=== PATIENT | female | born 2000 | race Caucasian/White ===

== ENCOUNTER 2018-04-29 16:05 | Inpatient (IN) | payer OTHER ==
[2018-04-29] MEDS: DEXTROSE 5%-LACTATED RINGERS 1,000 ML IV SCH (18:10)
[2018-04-29 18:34] VITALS: BMI 24.4
[2018-04-29 19:08] LABS: BASO % 0.2 % (0-2.0); EOS % 0.1 % (0-4.5); HEMATOCRIT 39.5 % (32.4-45.2); HEMOGLOBIN 12.9 GM/dL (10.7-15.3); LYMPH % 12.6 % (8-40); MCH 26.4 pg (25.7-33.7); MCHC 32.7 g/dl (32.0-36.0); MEAN CELL VOLUME 80.6 fl (80-96); MONO % 9.4 % (3.8-10.2); NEUT % 77.7 % (42.8-82.8); PLATELET COUNT 128 K/MM3 (134-434); RBC 4.91 M/mm3 (3.60-5.2); RDW 27.7 % (11.6-15.6); WHITE BLOOD COUNT 8.1 K/mm3 (4.0-10.0)
[2018-04-29 19:37] LABS: INR 0.96 (0.82-1.09); PROTHROMBIN TIME (PATIENT) 10.8 SEC (9.7-13.0)
[2018-04-29 19:40] LABS: ACTIVATED PTT 27.4 SECONDS (25.2-36.5)
[2018-04-29 19:45] LABS: ANION GAP 11 (8-16); BLOOD UREA NITROGEN 7 mg/dL (7-18); CALCIUM 8.9 mg/dL (8.5-10.1); CHLORIDE 102 mmol/L (98-107); CO2 23 mmol/L (21-32); CREATININE 0.5 mg/dL (0.55-1.02); GLUCOSE,RANDOM 73 mg/dL (74-106); POTASSIUM 3.8 mmol/L (3.5-5.1); SODIUM 136 mmol/L (136-145)
--- NOTE | 2018-04-29 20:43 | HP ---
Past Medical History - Admission Chief Complaint: srom History of Present Illness: 17yo EDC 04/22/18 [facility] at 41 weeks presents with lof at 3:50pm. PNC at [facility] care significant for late registrant. 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: Alzheimer's, CVA, Dementia, Migraine, Multiple Sclerosis, Peripheral Neuropathy, Parkinson's, Seizure, Syncope, TIA, Vertigo, Other Cardiovascular: No: AFIB, Aneurysm, Aortic Insufficiency, Aortic Stenosis, CAD, CHF, Deep Vein Thrombosis, HTN, Hyperlipdemia, FL, Mitral Insufficiency, Mitral Stenosis, Murmur, Pulmonary Hypertension, Other Pulmonary: No: Asthma, Bronchitis, Cancer, COPD, O2 Dependent, Pneumonia, Previously Intubated, Pulmonary Embolus, Pulmonary Fibrosis, Sleep Apnea, Other Gastrointestinal: No: Ascites, Cancer, Constipation, Crohn's Disease, Diverticulitis, Diverticulosis, Esophageal Varices, Gastritis, GERD, GI Bleed, Hemorrhoids, Hiatal Hernia, Inflamatory Bowel Disease, Irritable Bowel Disease, Pancreatitis, Peptic Ulcer Disease, Ulcerative Colitis, Other Hepatobiliary: No: Cirrhosis, Cholelithiasis, Cholecystitis, Choledocholithiasis , Hepatitis A, Hepatitis B, Hepatitis C, Other Renal/: No: Renal Failure, Renal Inusuff, BPH, Cancer, Hematuria, Hemodialysis , Neurogenic Bladder, Renal Calculi, UTI, Other ...: 1 ...Para: 0 ...Term: 0 ...: 0 ...Spon : 0 ...Induced : 0 ...Multiple Gestation: 0 ...EDC by Sono: 04/22/18 - Past Surgical History Past Surgical History: Yes: None Hx Myomectomy: No Hx Transabdominal Cerclage: No - Smoking History Smoking history: Never smoked Have you smoked in the past 12 months: No - Alcohol/Substance Use Hx Alcohol Use: No History of Substance Use: reports: None Home Medications - Allergies Allergies/Adverse Reactions: Allergies Allergy/AdvReac Type Severity Reaction Status Date / Time No Known Allergies Allergy Verified 07/02/18 17:08 - Home Medications Home Medications: Ambulatory Orders Ferrous Sulfate [Feosol] 325 mg PO TID 04/29/18 Pnv No.95/Ferrous Fum/Folic AC [ Vitamin Tablet] 1 each PO DAILY Review of Systems - Review of Systems Constitutional: reports: No Symptoms Eyes: reports: No Symptoms HENT: reports: No Symptoms Neck: reports: No Symptoms Cardiovascular: reports: No Symptoms Respiratory: reports: No Symptoms Gastrointestinal: reports: No Symptoms Genitourinary: reports: Pain Breasts: reports: No Symptoms Reported Musculoskeletal: reports: No Symptoms Integumentary: reports: No Symptoms Neurological: reports: No Symptoms Endocrine: reports: No Symptoms Hematology/Lymphatic: reports: No Symptoms Psychiatric: reports: No Symptoms Physical Exam - Maternity Vital Signs: Vital Signs Temperature 98.8 F 04/29/18 20:00 Pulse Rate 78 04/29/18 20:00 Respiratory Rate 20 04/29/18 20:00 Blood Pressure 117/66 04/29/18 20:00 O2 Sat by Pulse Oximetry (%) Constitutional: Yes: Well Nourished, No Distress, Calm Eyes: Yes: WNL, Conjunctiva Clear, EOM Intact HENT: Yes: WNL, Atraumatic, Normocephalic Neck: Yes: WNL, Supple, Trachea Midline Cardiovascular: Yes: WNL, Regular Rate and Rhythm Breast(s): Yes: WNL - Abdominal Exam/OB Fundal Height: 40 Number of Fetuses: Single Presentation: Vertex Contractions: Yes Regularity: Regular Intensity: Mild/Mod Monitor Mode: External Heart Rate (range): 120 mod lillie +accel no decel Category: I Accelerations: Uniform Decelerations: None - Vaginal Exam/OB Vaginal Bleediing: No Speculum Exam: No Dilatation (cm): 2 Effacement (%): 60 Amniotic Membrane Status: Ruptured Amniotic Fluid: Yes: Clear Presentation: Vertex/Position Station: -2 - Physical Exam Musculoskeletal: Yes: WNL Extremities: Yes: WNL Integumentary: Yes: WNL - Labs Lab Results: CBC, BMP 04/29/18 18:36 04/29/18 18:36 Hemorrhage Risk Assessment - Risk Factors Medium Risk Factors: Yes: None High Risk Factors: Yes: None Risk Score: 1 Risk Level: Medium Risk Problem List - Problems (1) Labor and delivery indication for care or intervention Assessment/Plan: 17yo at 41 weeks in early labor admit to labor and deliver pain management as needed gbs negative, but ; will treat based on risk factors cat [address] Benavides Code(s): O75.9 - COMPLICATION OF LABOR AND DELIVERY, UNSPECIFIED
--- NOTE | 2018-04-29 20:43 | DS ---
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
[2018-04-29 22:05] LABS: COCAINE, UR NEGATIVE ng/ml (CUTOFF=300); METHADONE, UR NEGATIVE ng/ml (CUTOFF=300); OPIATES, URI NEGATIVE ng/ml (CUTOFF=300); PHENCYCLIDINE,URINE NEGATIVE ng/ml (CUTOFF=25); URINE AMPHETAMINES NEGATIVE ng/ml (CUTOFF=500); URINE BARBITURATES NEGATIVE ng/ml (CUTOFF=200); URINE BENZODIAZEPINES NEGATIVE ng/ml (CUTOFF=200)
[2018-04-29] MEDS ORDERED: DEXTROSE 5%-LACTATED RINGERS 1,000 ML IV SCH (23:30)
[2018-04-30] MEDS ORDERED: BUTORPHANOL TARTRATE 1 MG/ML VIAL ONE ×4 (00:37→09:19)
[2018-04-30] MEDS ORDERED: PROMETHAZINE HCL 25 MG/1 ML VIAL ONE ×2 (00:37→09:19)
[2018-04-30] MEDS: BUTORPHANOL TARTRATE 1 MG/ML VIAL IVPB PRN ×2 (00:45→09:30)
[2018-04-30] MEDS: PROMETHAZINE HCL 25 MG/1 ML VIAL IVPUSH PRN ×2 (00:45→09:30)
--- NOTE | 2018-04-30 08:18 | PN ---
Progress Note (short form) - Note Progress Note: 17 yo , admitted for SROM, seen and evaluated. She c/o mild discomfort. FHR : Occasional decelerations [place] : irregular contractions VE : 4 80 / -1 Internal monitor placed A / P : 41 weeks gestation SROM Continue observation
[2018-04-30] MEDS ORDERED: AMPICILLIN - 2 GM in SODIUM CHLORIDE 100 ML IVPB ONE (10:00)
[2018-04-30] MEDS ORDERED: AMPICILLIN SODIUM 2 GM VIAL ONE (10:03)
[2018-04-30] MEDS ORDERED: ELECTROLYTE-148 SOLN 1,000 ML IV SCH ×2 (13:30→15:30)
--- NOTE | 2018-04-30 13:44 | PN ---
Progress Note (short form) - Note Progress Note: 17 yo , admitted for SROM, seen and evaluated. She c/o severe discomfort but declines epidural anesthesia. FHR : Frequent decelerations [place] : irregular contractions VE : 4 / 80 / -1 Internal monitor placed A / P : 41 weeks gestation SROM Non Reassuring Heart rate Pre op for primary Consent signed Anesthesia to see patient
[2018-04-30] MEDS ORDERED: AMPICILLIN - 1 GM in SODIUM CHLORIDE 100 ML IVPB SCH (14:00)
[2018-04-30] MEDS ORDERED: OXYTOCIN 20 UNITS in 0.9% NS 20 UNIT/1,000 ML INFUS.BAG IV ONE (14:04)
[2018-04-30] MEDS ORDERED: BUPIVACAINE 0.75% IN DEXTROSE/PF 2ML AMPULE NR ONE (14:10)
[2018-04-30] MEDS ORDERED: morphine SULFATE/Preservative Free 0.5 MG/ML (1cc Syringe) ONE (14:10)
[2018-04-30] MEDS ORDERED: SUCCINYLCHOLINE CHLORIDE 200 MG/10 ML VIAL ONE (14:12)
[2018-04-30] MEDS ORDERED: PROPOFOL 20 ML ONE (14:12)
[2018-04-30] MEDS ORDERED: PHENYLEPHRINE HCL 10 MG/1 ML SINGLE DOSE VIAL ONE (14:16)
[2018-04-30] MEDS ORDERED: ceFAZolin SODIUM 1 GM VIAL ONE (14:16)
[2018-04-30] MEDS ORDERED: LIDOCAINE HCL 1% PRESERVATIVE FREE - 30ML VIAL ONE (14:41)
[2018-04-30] MEDS ORDERED: IBUPROFEN 800 MG/8 ML IJ IVPB PRN (15:21)
[2018-04-30] MEDS ORDERED: METHYLERGONOVINE MALEATE 0.2 MG/1 ML AMP IM PRN (15:21)
[2018-04-30] MEDS ORDERED: ONDANSETRON 4 MG/2 ML VIAL IVPUSH PRN (15:24)
--- NOTE | 2018-04-30 15:27 | OP ---
Operative Note - Note: Operative Date: 04/30/18 Pre-Operative Diagnosis: SROM at 41 weeks gestation / Non Reassuring Heart Rate Operation: Primary Low Transverse Findings: Baby boy in OP position Nuchal cord x 1 Post-Operative Diagnosis: Same as Pre-op Surgeon: Carmita Lee Pricer Bagger: Kingsley Chiang Anesthesia: Spinal Specimens Removed: Placenta Estimated Blood Loss (mls): 600
[2018-04-30] MEDS ORDERED: OXYTOCIN 20 UNITS in 0.9% NS 20 UNIT/1,000 ML INFUS.BAG IV SCH (15:30)
[2018-04-30] MEDS ORDERED: KETOROLAC TROMETHAMINE 30 MG/1 ML VIAL ONE (15:30)
--- NOTE | 2018-04-30 15:55 | SURG ---
Surgery Wood Router Hand Note Wood Router Hand: Kingsley Chiang PA-C Date of Service: 04/30/18 Diagnosis: SROM at 41 weeks gestation / Non Reassuring Heart Rate Procedure: Primary Low Transverse --> Baby boy in OP position, Nuchal cord x 1 I was present for the entirety of the operative procedure. For further detail, please refer to operative report. Visit type - New patient This patient is new to me today: Yes Date on this admission: 04/30/18
[2018-04-30] MEDS ORDERED: CITRIC ACID/SODIUM CITRATE 30 ML UNIT-DOSE CUP PO ONE (16:00)
[2018-04-30] MEDS ORDERED: ACETAMINOPHEN 1000 MG/100 ML VIAL (NON FORMULARY) IVPB ONE (16:30)
[2018-04-30] MEDS: FERROUS SO4 325 MG TABLET (FP) PO SCH (17:44)
[2018-04-30] MEDS: DEXTROSE 5%-LACTATED RINGERS 1,000 ML IV SCH (20:11)
[2018-05-01] MEDS ORDERED: ONDANSETRON 4 MG/2 ML VIAL IVPUSH PRN
[2018-05-01] MEDS: DEXTROSE 5%-LACTATED RINGERS 1,000 ML IV SCH ×2 (00:04→06:16)
[2018-05-01] MEDS: SIMETHICONE 80 MG TAB.CHEW (FP) PO PRN ×3 (06:21→21:12)
[2018-05-01] MEDS: IBUPROFEN 600 MG TABLET (FP) PO PRN ×3 (06:21→21:12)
[2018-05-01 06:52] LABS: BASO % 0.2 % (0-2.0); EOS % 0.1 % (0-4.5); HEMATOCRIT 32.1 % (32.4-45.2); HEMOGLOBIN 11.1 GM/dL (10.7-15.3); LYMPH % 9.1 % (8-40); MCH 27.4 pg (25.7-33.7); MCHC 34.6 g/dl (32.0-36.0); MEAN CELL VOLUME 79.1 fl (80-96); MEAN PLT VOLUME 8.3 fl (7.5-11.1); MONO % 8.2 % (3.8-10.2); NEUT % 82.4 % (42.8-82.8); PLATELET COUNT 105 K/MM3 (134-434); RBC 4.06 M/mm3 (3.60-5.2)
[2018-05-01] MEDS: FERROUS SO4 325 MG TABLET (FP) PO SCH ×2 (08:08→18:25)
--- NOTE | 2018-05-01 08:08 | PN ---
Post Progress Note - Subjective Subjective: c/o pain scale 5/10 pt not oob yet stevenson catheter draining well sary color urine Post Day: 1 Type of Delivery: Primary C/S Vital Signs: Vital Signs Temperature 99.2 F 05/01/18 06:00 Pulse Rate 80 05/01/18 06:00 Respiratory Rate 18 05/01/18 06:00 Blood Pressure 120/59 05/01/18 06:00 O2 Sat by Pulse Oximetry (%) Breast Exam: Yes: Soft, Other (plans to BF ). No: Engorged Uterus: Yes: Fundus Firm, Fundus below umbilicus, Non-tender Incision: Yes: Dressing dry and intact. No: Redness, Oozing Abdomen/GI: Yes: Abdomen soft (bs active ), Tolerating PO (clear liqiuds ). No : Abdominal Distention, Tender, Passing flatus Lochia: Yes: Rubra Lochia, amount: Moderate Extremities: Yes: Calves non-tender Perineum: Yes: Intact Activity: Other (not oob yet ) - Labs Labs: CBC WBC 10.0 K/mm3 (4.0-10.0) 05/01/18 06:30 RBC 4.06 M/mm3 (3.60-5.2) 05/01/18 06:30 Hgb 11.1 GM/dL (10.7-15.3) 05/01/18 06:30 Hct 32.1 % (32.4-45.2) L D 05/01/18 06:30 MCV 79.1 fl (80-96) L 05/01/18 06:30 MCH 27.4 pg (25.7-33.7) 05/01/18 06:30 MCHC 34.6 g/dl (32.0-36.0) 05/01/18 06:30 RDW 27.0 % (11.6-15.6) H 05/01/18 06:30 Plt Count 105 K/MM3 (134-434) L 05/01/18 06:30 MPV 8.3 fl (7.5-11.1) 05/01/18 06:30 Absolute Neuts (auto) 8.2 # 05/01/18 06:30 Neutrophils % 82.4 % (42.8-82.8) 05/01/18 06:30 Lymphocytes % 9.1 % (8-40) D 05/01/18 06:30 Monocytes % 8.2 % (3.8-10.2) 05/01/18 06:30 Eosinophils % 0.1 % (0-4.5) 05/01/18 06:30 Basophils % 0.2 % (0-2.0) 05/01/18 06:30 Nucleated RBC % 0 % (0-0) 05/01/18 06:30 Other Findings, Remarks: RS cta i/o adequate Assessment/Plan stable Plan ct po care remove catheter, encourage ambulation, deep breathing , po fluids
[2018-05-01] MEDS: ACETAMINOPHEN 325 MG TABLET (FP) PO PRN ×3 (08:10→21:13)
--- NOTE | 2018-05-01 08:38 | PN ---
Progress Note, Physician Chief Complaint: Patient still has stevenson, not ambulated yet, pain controlled, no anesthesia complaints. - Current Medication List Current Medications: Active Medications Acetaminophen (Tylenol -) 650 mg PO Q4H PRN PRN Reason: PAIN LEVEL 1-5 Last Admin: 05/01/18 08:10 Dose: 650 mg Bisacodyl (Dulcolax Suppository -) 10 mg RC PRN PRN PRN Reason: CONSTIPATION Diphenhydramine HCl (Benadryl Injection -) 25 mg IVPUSH Q4H PRN PRN Reason: Pruritis Ferrous Sulfate (Feosol -) 325 mg PO BIDWM [facility] Last Admin: 05/01/18 08:08 Dose: Not Given Dextrose/Lactated Ringer's (D5-Lr -) 1,000 mls @ 125 mls/hr IV ASDIR [facility] Last Admin: 05/01/18 06:16 Dose: 125 mls/hr Oxytocin/Sodium Chloride (Normal Saline+20 Units Oxytocin -) 20 unit in 1,000 mls @ 125 mls/hr IV ASDIR [facility] Last Admin: 04/30/18 16:30 Dose: 125 mls/hr Ibuprofen (Motrin -) 600 mg PO Q4H PRN PRN Reason: PAIN LEVEL 1 - 3 Last Admin: 05/01/18 06:21 Dose: 600 mg Ibuprofen (Caldolor Injection -) 800 mg IVPB Q8H PRN PRN Reason: PAIN LEVEL 4 - 6 Methylergonovine Maleate (Methergine Injection -) 0.2 mg IM Q4H PRN PRN Reason: Excessive Bleeding (L&D) Ondansetron HCl (Zofran Injection) 4 mg IVPUSH Q4H PRN PRN Reason: NAUSEA Multivit/Folic Acid/Iron ( Vitamins (Sjr) -) 1 tab PO DAILY [facility] Simethicone (Mylicon -) 80 mg PO Q4H PRN PRN Reason: GAS Last Admin: 05/01/18 06:21 Dose: 80 mg - Objective Vital Signs: Vital Signs Temperature 99.2 F 05/01/18 06:00 Pulse Rate 80 05/01/18 06:00 Respiratory Rate 18 05/01/18 06:00 Blood Pressure 120/59 05/01/18 06:00 O2 Sat by Pulse Oximetry (%) Constitutional: Yes: Well Nourished, No Distress, Calm Musculoskeletal: Yes: WNL Neurological: Yes: WNL, Alert, Oriented ...Motor Strength: WNL Labs: CBC, BMP 05/01/18 06:30 04/29/18 18:36 INR, PTT INR 0.96 (0.82-1.09) 04/29/18 18:36 Assessment/Plan POD#1 s/p under spinal with duramorph. Doing well. D/C from anesthesia care when ambulating and voiding.
[2018-05-01] MEDS: PRENATAL VITAMINS W/ FOLIC ACID TABLET (FP) PO SCH (11:17)
[2018-05-01] MEDS ORDERED: BISACODYL 10 MG SUPP.RECT RC PRN (15:26)
[2018-05-02] MEDS: SIMETHICONE 80 MG TAB.CHEW (FP) PO PRN ×3 (04:55→23:39)
[2018-05-02] MEDS: IBUPROFEN 600 MG TABLET (FP) PO PRN ×3 (04:55→23:38)
[2018-05-02] MEDS: ACETAMINOPHEN 325 MG TABLET (FP) PO PRN ×3 (04:56→23:38)
[2018-05-02] MEDS: FERROUS SO4 325 MG TABLET (FP) PO SCH ×3 (09:00→17:06)
[2018-05-02] MEDS: PRENATAL VITAMINS W/ FOLIC ACID TABLET (FP) PO SCH (09:08)
--- NOTE | 2018-05-02 11:59 | PN ---
Post Progress Note - Subjective Subjective: no complains of pain today , scale 3-4 voiding without difficulty BM not done Post Day: 2 Type of Delivery: Primary C/S Vital Signs: Vital Signs Temperature 98.9 F 05/02/18 10:00 Pulse Rate 82 05/02/18 10:00 Respiratory Rate 20 05/02/18 10:00 Blood Pressure 112/48 05/02/18 10:00 O2 Sat by Pulse Oximetry (%) Breast Exam: Yes: Soft. No: Engorged Uterus: Yes: Fundus Firm, Fundus below umbilicus, Non-tender Incision: Yes: Sutures intact. No: Redness, Oozing Abdomen/GI: Yes: Abdomen soft (bs active ), Passing flatus, Tolerating PO (diet ). No: Abdominal Distention, Tender Lochia: Yes: Rubra Lochia, amount: Moderate Extremities: Yes: Calves non-tender Perineum: Yes: Intact Activity: Ambulating - Labs Labs: CBC WBC 10.0 K/mm3 (4.0-10.0) 05/01/18 06:30 RBC 4.06 M/mm3 (3.60-5.2) 05/01/18 06:30 Hgb 11.1 GM/dL (10.7-15.3) 05/01/18 06:30 Hct 32.1 % (32.4-45.2) L D 05/01/18 06:30 MCV 79.1 fl (80-96) L 05/01/18 06:30 MCH 27.4 pg (25.7-33.7) 05/01/18 06:30 MCHC 34.6 g/dl (32.0-36.0) 05/01/18 06:30 RDW 27.0 % (11.6-15.6) H 05/01/18 06:30 Plt Count 105 K/MM3 (134-434) L 05/01/18 06:30 MPV 8.3 fl (7.5-11.1) 05/01/18 06:30 Absolute Neuts (auto) 8.2 # 05/01/18 06:30 Neutrophils % 82.4 % (42.8-82.8) 05/01/18 06:30 Lymphocytes % 9.1 % (8-40) D 05/01/18 06:30 Monocytes % 8.2 % (3.8-10.2) 05/01/18 06:30 Eosinophils % 0.1 % (0-4.5) 05/01/18 06:30 Basophils % 0.2 % (0-2.0) 05/01/18 06:30 Nucleated RBC % 0 % (0-0) 05/01/18 06:30 Problem List - Problems (1) Status post section routine follow-up Code(s): Z39.2 - ENCOUNTER FOR ROUTINE FOLLOW-UP; Z98.891 - HISTORY OF UTERINE SCAR FROM PREVIOUS SURGERY Assessment/Plan stable , s/p c/section plan ct po care
[2018-05-02] MEDS: SENNOSIDES/DOCUSATE COMBO (SENNA PLUS) TABLET (UD) PO PRN (21:11)
[2018-05-03 07:55] LABS: BASO % 0.2 % (0-2.0); EOS % 0.7 % (0-4.5); HEMATOCRIT 31.4 % (32.4-45.2); HEMOGLOBIN 10.8 GM/dL (10.7-15.3); LYMPH % 9.9 % (8-40); MCH 27.3 pg (25.7-33.7); MCHC 34.4 g/dl (32.0-36.0); MEAN CELL VOLUME 79.4 fl (80-96); MEAN PLT VOLUME 9.2 fl (7.5-11.1); MONO % 8.7 % (3.8-10.2); NEUT % 80.5 % (42.8-82.8); PLATELET COUNT 139 K/MM3 (134-434); RBC 3.95 M/mm3 (3.60-5.2); RDW 26.4 % (11.6-15.6); WHITE BLOOD COUNT 11.1 K/mm3 (4.0-10.0)
[2018-05-03] MEDS: FERROUS SO4 325 MG TABLET (FP) PO SCH ×2 (08:18→18:02)
[2018-05-03] MEDS: PRENATAL VITAMINS W/ FOLIC ACID TABLET (FP) PO SCH (10:25)
--- NOTE | 2018-05-03 10:30 | PN ---
Post Progress Note - Subjective Subjective: no c/o pain, scale 3/10 bm done Post Day: 3 Type of Delivery: Primary C/S Vital Signs: Vital Signs Temperature 98.3 F 05/02/18 21:00 Pulse Rate 76 05/02/18 21:00 Respiratory Rate 20 05/02/18 21:00 Blood Pressure 129/77 05/02/18 21:00 O2 Sat by Pulse Oximetry (%) Breast Exam: Yes: Soft. No: Engorged Uterus: Yes: Fundus Firm, Fundus below umbilicus, Non-tender Incision: Yes: Sutures intact. No: Redness, Oozing Abdomen/GI: Yes: Abdomen soft, Passing flatus, Tolerating PO (diet ). No: Abdominal Distention, Tender Lochia: Yes: Rubra Lochia, amount: Moderate Extremities: Yes: Calves non-tender Perineum: Yes: Intact Activity: Ambulating - Labs Labs: CBC WBC 11.1 K/mm3 (4.0-10.0) H 05/03/18 07:00 RBC 3.95 M/mm3 (3.60-5.2) 05/03/18 07:00 Hgb 10.8 GM/dL (10.7-15.3) 05/03/18 07:00 Hct 31.4 % (32.4-45.2) L 05/03/18 07:00 MCV 79.4 fl (80-96) L 05/03/18 07:00 MCH 27.3 pg (25.7-33.7) 05/03/18 07:00 MCHC 34.4 g/dl (32.0-36.0) 05/03/18 07:00 RDW 26.4 % (11.6-15.6) H 05/03/18 07:00 Plt Count 139 K/MM3 (134-434) D 05/03/18 07:00 MPV 9.2 fl (7.5-11.1) D 05/03/18 07:00 Absolute Neuts (auto) 8.9 # 05/03/18 07:00 Neutrophils % 80.5 % (42.8-82.8) 05/03/18 07:00 Lymphocytes % 9.9 % (8-40) 05/03/18 07:00 Monocytes % 8.7 % (3.8-10.2) 05/03/18 07:00 Eosinophils % 0.7 % (0-4.5) D 05/03/18 07:00 Basophils % 0.2 % (0-2.0) 05/03/18 07:00 Nucleated RBC % 0 % (0-0) 05/03/18 07:00 Problem List - Problems (1) Status post section routine follow-up Code(s): Z39.2 - ENCOUNTER FOR ROUTINE FOLLOW-UP; Z98.891 - HISTORY OF UTERINE SCAR FROM PREVIOUS SURGERY Assessment/Plan stable plan discharge tomorrow
[2018-05-03] MEDS: ACETAMINOPHEN 325 MG TABLET (FP) PO PRN ×2 (15:26→23:35)
[2018-05-03] MEDS: IBUPROFEN 600 MG TABLET (FP) PO PRN ×2 (15:27→23:35)
[2018-05-03] MEDS: SIMETHICONE 80 MG TAB.CHEW (FP) PO PRN ×2 (15:28→23:35)
[2018-05-03] MEDS: SENNOSIDES/DOCUSATE COMBO (SENNA PLUS) TABLET (UD) PO PRN (23:35)
--- NOTE | 2018-05-04 06:05 | PN ---
Post Progress Note - Subjective Subjective: pain toerable, 3/10 voiding well bm done Post Day: 4 Type of Delivery: Primary C/S Vital Signs: Vital Signs Temperature 98.4 F 05/03/18 20:58 Pulse Rate 78 05/03/18 20:58 Respiratory Rate 20 05/03/18 20:58 Blood Pressure 109/64 05/03/18 20:58 O2 Sat by Pulse Oximetry (%) Breast Exam: Yes: Soft. No: Engorged Uterus: Yes: Fundus Firm, Fundus below umbilicus, Non-tender Incision: Yes: Sutures intact. No: Redness, Oozing Abdomen/GI: Yes: Abdomen soft, Passing flatus, Tolerating PO (diet). No: Abdominal Distention, Tender Lochia: Yes: Rubra Lochia, amount: Moderate Extremities: Yes: Calves non-tender Perineum: Yes: Intact Activity: Ambulating - Labs Labs: CBC WBC 11.1 K/mm3 (4.0-10.0) H 05/03/18 07:00 RBC 3.95 M/mm3 (3.60-5.2) 05/03/18 07:00 Hgb 10.8 GM/dL (10.7-15.3) 05/03/18 07:00 Hct 31.4 % (32.4-45.2) L 05/03/18 07:00 MCV 79.4 fl (80-96) L 05/03/18 07:00 MCH 27.3 pg (25.7-33.7) 05/03/18 07:00 MCHC 34.4 g/dl (32.0-36.0) 05/03/18 07:00 RDW 26.4 % (11.6-15.6) H 05/03/18 07:00 Plt Count 139 K/MM3 (134-434) D 05/03/18 07:00 MPV 9.2 fl (7.5-11.1) D 05/03/18 07:00 Absolute Neuts (auto) 8.9 # 05/03/18 07:00 Neutrophils % 80.5 % (42.8-82.8) 05/03/18 07:00 Lymphocytes % 9.9 % (8-40) 05/03/18 07:00 Monocytes % 8.7 % (3.8-10.2) 05/03/18 07:00 Eosinophils % 0.7 % (0-4.5) D 05/03/18 07:00 Basophils % 0.2 % (0-2.0) 05/03/18 07:00 Nucleated RBC % 0 % (0-0) 05/03/18 07:00 Other Findings, Remarks: pt cheerful Problem List - Problems (1) Status post section routine follow-up Code(s): Z39.2 - ENCOUNTER FOR ROUTINE FOLLOW-UP; Z98.891 - HISTORY OF UTERINE SCAR FROM PREVIOUS SURGERY Assessment/Plan stable po instructions given discharge today
[2018-05-04] MEDS: FERROUS SO4 325 MG TABLET (FP) PO SCH (08:11)
[2018-05-04] MEDS: PRENATAL VITAMINS W/ FOLIC ACID TABLET (FP) PO SCH (09:13)
[2018-05-04 09:38] VITALS: BP 125/73; PULSE 63; TEMP 98.1
--- NOTE | 2018-05-07 16:59 | PATH ---
Surgical Pathology Report Patient Name: KASIA CORMIER Med. Rec. 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 Specimen(s) Received PLACENTA Clinical History , 41 gestational weeks, nonreassuring heart rate Final Diagnosis PLACENTA, SECTION: 449 g THIRD TRIMESTER PLACENTA WITH TRIVASCULAR UMBILICAL CORD AND UNREMARKABLE PLACENTAL MEMBRANES. Electronically Signed Tata Alcantar M.D. Gross Description The specimen is received fresh labeled placenta and is a 449 gram, 17.5 x 15.0 x 2.7 cm. placenta with attached membranes and umbilical cord. The attached membranes are reaves, translucent with focal opacities and display focal circumarginate insertion. The umbilical cord measures 27 cm. in length and averages 1 cm. in diameter. The cord inserts centrally. No true knots or strictures are identified. Cut surface of the umbilical cord reveals 3 vessels. The surface is gil blue with moderate fibrin deposition and appropriate caliber vessels. The maternal surface is red-brown with focal defects. Sectioning reveals red-brown, spongy parenchyma. No lesions are identified. Sleeve Machine Tender sections are submitted in three cassettes as follows: 1- membrane rolls and umbilical cord; 2-3- full thickness sections of placenta. /05/03/2018 saudi05/03/2018
== END 2018-05-04 13:50 | disposition home or self-care (01) | DRG 540 ==
LOC: JDEL 16:05 → JLDR 18:00 → J3W 04-30 16:54
PROVIDERS: ADMIT Obstetrics & Gynecology; ATTEND Obstetrics & Gynecology
PROC: 10D00Z1 Extraction of Products of Conception, Low, Open Approach (ICD-10-PCS; principal; 2018-04-30)
DX: O48.0 Post-term pregnancy (principal); O76 Abnormality in fetal heart rate and rhythm complicating labor and delivery; O69.81X0 Labor and delivery complicated by cord around neck, without compression, not applicable or unspecified; Z3A.38 38 weeks gestation of pregnancy; Z37.0 Single live birth
CPT/HCPCS: 36415; 76819-TC; 80048; 80307; 85025; 85610; 85730; 86593; 86850; 86900; 86901; 88307-TC

== ENCOUNTER 2023-03-26 23:37 | Emergency (ER) | payer OTHER ==
[2023-03-26 23:46] VITALS: BP 119/69; PULSE 95; RESP 18; TEMP 98.4; BMI 17.3
[2023-03-27 01:12] LABS: BASO % 0.6 % (0-2.0); EOS % 0.3 % (0-4.5); HEMATOCRIT 36.7 % (32.4-45.2); HEMOGLOBIN 13.2 GM/dL (10.7-15.3); LYMPH % 34.7 % (8-40); MCH 29.7 pg (25.7-33.7); MEAN CELL VOLUME 82.5 fl (80-96); MEAN PLT VOLUME 8.7 fl (7.5-11.1); MONO % 6.6 % (3.8-10.2); NEUT % 57.8 % (42.8-82.8); PLATELET COUNT 188 10^3/uL (134-434); RBC 4.45 M/mm3 (3.60-5.2); RDW 15.1 % (11.6-15.6); WHITE BLOOD COUNT 7.3 K/mm3 (4.0-10.0)
[2023-03-27 01:14] LABS: EPI CELLS 10 /uL (0-25.1); HYALINE CASTS 1 /uL (0-3.1); PH,URINE 5.5 (5.0-8.0); URINE APPEARANCE CLEAR; URINE BACTERIA 100 /uL (0-1359); URINE BILIRUBIN NEGATIVE (NEGATIVE); URINE COLOR YELLOW; URINE GLUCOSE (UA) NEGATIVE (NEGATIVE); URINE KETONE NEGATIVE (NEGATIVE); URINE LEUK ESTERASE NEGATIVE (NEGATIVE); URINE NITRITE NEGATIVE (NEGATIVE); URINE PROTEIN TRACE (NEGATIVE); URINE RBC 1180 /uL (0-23.9); URINE UROBILINOGEN 0.2 mg/dL (0.2-1.0); URINE WBC 12 /uL (0-25.8)
[2023-03-27 01:27] LABS: POTASSIUM 3.7 mmol/L (3.5-5.1)
[2023-03-27 01:29] LABS: CALCIUM 8.9 mg/dL (8.5-10.1)
[2023-03-27 01:30] LABS: ALBUMIN 4.1 g/dl (3.4-5.0); BLOOD UREA NITROGEN 8.3 mg/dL (7-18)
[2023-03-27 01:33] LABS: CREATININE 0.6 mg/dL (0.55-1.3)
[2023-03-27 01:34] LABS: BILIRUBIN,TOTAL 0.4 mg/dL (0.2-1); TOT PROT 7.4 g/dl (6.4-8.2)
== END 2023-03-27 04:54 | disposition home or self-care (01) ==
LOC: JER 23:37
DX: O03.9 Complete or unspecified spontaneous abortion without complication (principal); O26.899 Other specified pregnancy related conditions, unspecified trimester; R10.30 Lower abdominal pain, unspecified; O21.9 Vomiting of pregnancy, unspecified; Z3A.01 Less than 8 weeks gestation of pregnancy
CPT/HCPCS: 36415; 76817-TC; 80053; 81003; 84702; 85025; 86850; 86900; 86901; 87086; 99284-25